=== PATIENT | female | born 1995 | race African-American/Black ===

== ENCOUNTER 2017-05-20 20:32 | Emergency (ER) | payer OTHER ==
[2017-05-20 20:49] VITALS: TEMP 98.5; BMI 22.8
--- NOTE | 2017-05-20 20:49 | PDOC ---
Rapid Medical Evaluation Time Seen by Provider: 05/20/17 20:44 Medical Evaluation: Allergies Allergy/AdvReac Type Severity Reaction Status Date / Time codeine [Codeine] AdvReac Severe Hives Verified 04/11/15 17:09 hydromorphone HCl AdvReac Severe Hives Verified 04/11/15 17:09 [From Dilaudid] oxycodone HCl [From Percocet] AdvReac Severe Hives Verified 04/11/15 17:09 05/20/17 20:44 21 year old female with Long QT Syndrome s/p PPM/aICD placement at [facility] 2010 who presents with mother complaining of chest tightness, "heartburn", and left arm pain that began at rest about one hour ago. Does not feel short of breath now, but did earlier today. -EKG -CXR -CBC, CMP, cardiac profile, PT/INR -To Main ED for further evaluation Discharge Disposition - Referrals Referrals: Pardeep Welch MD [Primary Care Provider] - - Patient Instructions - Post Discharge Activity
[2017-05-20 21:19] LABS: BASO % 0.6 % (0-2.0); EOS % 0.9 % (0-4.5); HEMATOCRIT 39.9 % (32.4-45.2); HEMOGLOBIN 13.1 GM/dL (10.7-15.3); MCH 31.7 pg (25.7-33.7); MCHC 32.8 g/dl (32.0-36.0); MEAN CELL VOLUME 96.5 fl (80-96); MEAN PLT VOLUME 7.5 fl (7.5-11.1); MONO % 6.3 % (3.8-10.2); NEUT % 70.2 % (42.8-82.8); PLATELET COUNT 354 K/MM3 (134-434); RBC 4.14 M/mm3 (3.60-5.2); RDW 13.7 % (11.6-15.6); WHITE BLOOD COUNT 8.2 K/mm3 (4.0-10.0)
[2017-05-20 21:33] LABS: INR 1.17 (0.82-1.09); PROTHROMBIN TIME (PATIENT) 13.2 SEC (9.98-11.88)
[2017-05-20 21:44] LABS: ALBUMIN 4.3 g/dl (3.4-5.0); ANION GAP 8 (8-16); BILIRUBIN,TOTAL 0.4 mg/dL (0.2-1.0); BLOOD UREA NITROGEN 5 mg/dL (7-18); CALCIUM 8.8 mg/dL (8.5-10.1); CHLORIDE 105 mmol/L (98-107); CO2 27 mmol/L (21-32); CREATININE 0.6 mg/dL (0.55-1.02); GLUCOSE,RANDOM 115 mg/dL (74-106); POTASSIUM 3.7 mmol/L (3.5-5.1); SGOT/AST 11 U/L (15-37); SGPT/ALT 12 U/L (12-78); SODIUM 140 mmol/L (136-145)
[2017-05-20 21:46] LABS: ALK PHOS 53 U/L (45-117)
[2017-05-20 22:12] VITALS: BP 107/67; PULSE 87
--- NOTE | 2017-05-20 22:16 | PDOC ---
History of Present Illness - General History Source: Patient Exam Limitations: No Limitations - History of Present Illness Initial Comments: 05/20/17 22:32 The patient is a 21 year old female with a significant PMH of long QT syndrome s /p ICD pacemaker placement (2010), anemia, and asthma who presents to the emergency department with chest tightness and epigastric discomfort beginning earlier today. She describes her chest tightness as a midsternal pain with radiation down her left arm, 8/10 in severity. She also endorses slight shortness of breath at presentation. The patient denies headache and dizziness. Denies fever, chills, nausea, vomit, diarrhea and constipation. Denies dysuria, frequency, urgency and hematuria. Allergies: Codeine. Hydromorphone HCl. Oxycodone HCl. Past surgical history: ICD pacemaker placement. Social history: No reported cigarette, alcohol, or drug use. PCP: None reported. <Jeremías Parker - Last Filed: 05/21/17 01:15> - General History Source: Patient <Jaylan Mustafa - Last Filed: 05/21/17 19:18> - General Chief Complaint: Pain Stated Complaint: LEFT ARM PAIN/CHEST TIGHTNESS Time Seen by Provider: 05/20/17 20:44 Past History <Jeremías Parker - Last Filed: 05/21/17 01:15> - Past Medical History Anemia: Yes Asthma: Yes Cardiac Disorders: Yes (long QT syndrome-> 1 sz, defibrillator) COPD: No Seizures: No (cardiac seizure) - Surgical History Cardiac Surgery: Yes (ICD implanted 2010) - Immunization History Immunization Up to Date: Yes - Suicide/Smoking/Psychosocial Hx Smoking Status: No Smoking History: Never smoked Have you smoked in the past 12 months: No Number of Cigarettes Smoked Daily: 0 Information on smoking cessation initiated: No Hx Alcohol Use: No Drug/Substance Use Hx: No Substance Use Type: None <Jaylan Mustafa - Last Filed: 05/21/17 19:18> - Past Medical History Allergies/Adverse Reactions: Allergies Allergy/AdvReac Type Severity Reaction Status Date / Time codeine [Codeine] AdvReac Severe Hives Verified 05/20/17 20:47 hydromorphone HCl AdvReac Severe Hives Verified 05/20/17 20:47 [From Dilaudid] oxycodone HCl [From Percocet] AdvReac Severe Hives Verified 05/20/17 20:47 Home Medications: Ambulatory Orders Noreth A-Et Estra/Fe Fumarate [Microgestin Fe 1.5-30 Tab] 1 each PO DAILY Naproxen [Naprosyn -] 500 mg PO BID #30 tablet 04/11/15 Review of Systems - Review of Systems Able to Perform ROS?: Yes Comments:: 05/20/17 22:32 CONSTITUTIONAL: Absent: fever, chills, diaphoresis, generalized weakness, malaise, loss of appetite HEENT: Absent: rhinorrhea, nasal congestion, throat pain, throat swelling, difficulty swallowing, mouth swelling, ear pain, eye pain, visual Changes CARDIOVASCULAR: (+) Midsternal chest tightness with radiation to the left arm. Absent: syncope, palpitations, irregular heart rate, lightheadedness, peripheral edema RESPIRATORY: (+) Shortness of breath. Absent: cough, dyspnea with exertion, orthopnea, wheezing, stridor, hemoptysis GASTROINTESTINAL: (+) Epigastric discomfort. Absent: abdominal distension, nausea, vomiting, diarrhea, constipation, melena, hematochezia GENITOURINARY: Absent: dysuria, frequency, urgency, hesitancy, hematuria, flank pain, genital pain MUSCULOSKELETAL: Absent: myalgia, arthralgia, joint swelling SKIN: Absent: rash, itching, pallor HEMATOLOGIC/IMMUNOLOGIC: Absent: easy bleeding, easy bruising, lymphadenopathy, frequent infections ENDOCRINE: Absent: unexplained weight gain, unexplained weight loss, heat intolerance, cold intolerance NEUROLOGIC: Absent: headache, focal weakness or paresthesias, dizziness, unsteady gait, seizure, mental status changes, bladder or bowel incontinence PSYCHIATRIC: Absent: anxiety, depression, suicidal or homicidal ideation, hallucinations. <Jeremías Parker - Last Filed: 05/21/17 01:15> *Physical Exam - Vital Signs Last Vital Signs Temp Pulse Resp BP Pulse Ox 98.5 F 87 18 107/67 99 05/20/17 20:47 05/20/17 22:11 05/20/17 22:11 05/20/17 22:11 05/20/17 22:11 - Physical Exam Comments: 05/20/17 22:32 GENERAL: Well developed, well nourished. Awake and alert. No acute distress. HEENT: Normocephalic, atraumatic. PERRLA, EOMI. No conjunctival pallor. Sclera are non- icteric. Moist mucous membranes. Oropharynx is clear. NECK: Supple. Full ROM. No JVD. Carotid pulses 2+ and symmetric, without bruits. No thyromegaly. No lymphadenopathy. CARDIOVASCULAR: Regular rate and rhythm. No murmurs, rubs, or gallops. Distal pulses are 2+ and symmetric. PULMONARY: No evidence of respiratory distress. Lungs clear to auscultation bilaterally. No wheezing, rales or rhonchi. ABDOMINAL: Soft. Non-tender. Non-distended. No rebound or guarding. No organomegaly. Normoactive bowel sounds. MUSCULOSKELETAL Normal range of motion at all joints. No bony deformities or tenderness. No CVA tenderness. EXTREMITIES: No cyanosis. No clubbing. No edema. No calf tenderness. SKIN: Warm and dry. Normal capillary refill. No rashes. No jaundice. NEUROLOGICAL: Alert, awake, appropriate. Cranial nerves 2-12 intact. No deficits to light touch and temperature in face, upper extremities and lower extremities. No motor deficits in the in face, upper extremities and lower extremities. Normoreflexic in the upper and lower extremities. Normal speech. Toes are downgoing bilaterally. Gait is normal without ataxia. PSYCHIATRIC: Cooperative. Good eye contact. Appropriate mood and affect. <Jeremías Parker - Last Filed: 05/21/17 01:15> - Vital Signs Last Vital Signs Temp Pulse Resp BP Pulse Ox 98.5 F 87 18 107/67 99 05/20/17 20:47 05/20/17 22:11 05/20/17 22:11 05/20/17 22:11 05/20/17 22:11 <Jaylan Mustafa - Last Filed: 05/21/17 19:18> Heart Score/ECG Review #1 05/20/17 22:41 Vent rate 86 bpm Normal sinus rhythm Normal ECG #2 05/21/17 01:16 Vent rate 66 bpm Normal sinus rhythm with sinus arrythmia Low voltage QRS Prolonged QT Abnormal ECG <Jeremías Parker - Last Filed: 05/21/17 01:15> ED Treatment Course - LABORATORY CBC & Chemistry Diagram: 05/20/17 21:00 05/20/17 21:00 - ADDITIONAL ORDERS Additional order review: Laboratory Results 05/20/17 05/20/17 21:00 21:00 PT with INR 13.20 H INR 1.17 H Sodium 140 Potassium 3.7 Chloride 105 Carbon Dioxide 27 Anion Gap 8 BUN 5 L Creatinine 0.6 Creat Clearance w eGFR > 60 Random Glucose 115 H Calcium 8.8 Magnesium 2.0 Total Bilirubin 0.4 D AST 11 L ALT 12 Alkaline Phosphatase 53 Creatine Kinase 73 Troponin I < 0.02 Total Protein 9.0 H Albumin 4.3 05/20/17 21:00 RBC 4.14 MCV 96.5 H MCHC 32.8 RDW 13.7 MPV 7.5 Neutrophils % 70.2 Lymphocytes % 22.0 Monocytes % 6.3 Eosinophils % 0.9 Basophils % 0.6 <Jeremías Parker - Last Filed: 05/21/17 01:15> - LABORATORY CBC & Chemistry Diagram: 05/20/17 21:00 05/20/17 21:00 - ADDITIONAL ORDERS Additional order review: Laboratory Results 05/20/17 05/20/17 21:00 21:00 PT with INR 13.20 H INR 1.17 H Sodium 140 Potassium 3.7 Chloride 105 Carbon Dioxide 27 Anion Gap 8 BUN 5 L Creatinine 0.6 Creat Clearance w eGFR > 60 Random Glucose 115 H Calcium 8.8 Magnesium 2.0 Total Bilirubin 0.4 D AST 11 L ALT 12 Alkaline Phosphatase 53 Creatine Kinase 73 Troponin I < 0.02 Total Protein 9.0 H Albumin 4.3 05/20/17 21:00 RBC 4.14 MCV 96.5 H MCHC 32.8 RDW 13.7 MPV 7.5 Neutrophils % 70.2 Lymphocytes % 22.0 Monocytes % 6.3 Eosinophils % 0.9 Basophils % 0.6 <Jaylan Mustafa - Last Filed: 05/21/17 19:18> Medical Decision Making - Medical Decision Making 05/21/17 19:17 Dr. Mustafa: The scribe's documentation has been prepared under my direction and personally reviewed by me in its entirery. I confirm that the note above accurately reflects all work, treatment, procedures, and medical decision making performed by me. 21-year-old female with Prolongeed QT syndrome with ACID/pacemaker. Complained of chest pain, clinic enzymes 2 are negative. Patient discharged to follow cardiology <Jaylan Mustafa - Last Filed: 05/21/17 19:18> *DC/Admit/Observation/Transfer - Attestations Scribe Attestion: 05/20/17 22:32 Documentation prepared by Jeremías Parker, acting as medical service technician for Jaylan Mustafa DO. <Jeremías Parker - Last Filed: 05/21/17 01:15> - Discharge Dispostion Admit: No <Jaylan Mustafa - Last Filed: 05/21/17 19:18> Diagnosis at time of Disposition: Chest pain Qualifiers: Chest pain type: unspecified Qualified Code(s): R07.9 - Chest pain, unspecified - Discharge Dispostion Disposition: HOME Condition at time of disposition: Stable - Referrals Referrals: Pardeep Welch MD [Staff Physician] - Sonny Reyes MD [Staff Physician] - - Patient Instructions Printed Discharge Instructions: DI for Chest Pain Additional Instructions: Please follow up with your primary care and analytics intern as soon as possible. Return if any problems. - Post Discharge Activity
[2017-05-20] MEDS ORDERED: ASPIRIN 81 MG CHEWABLE TABLETS PO ONE (22:23)
[2017-05-20] MEDS ORDERED: PANTOPRAZOLE SODIUM 40 MG in SODIUM CHLORIDE 100 ML IVPB ONE (22:23)
[2017-05-20] MEDS ORDERED: PANTOPRAZOLE SODIUM 40 MG VIAL ONE (22:57)
[2017-05-20] MEDS ORDERED: ASPIRIN 325 MG TABLET ONE (22:57)
--- NOTE | 2017-05-21 10:26 | EKG ---
Test Reason : Blood Pressure : / mmHG Vent. Rate : 066 BPM Atrial Rate : 066 BPM P-R Int : 146 ms QRS Dur : 074 ms QT Int : 460 ms P-R-T Axes : 060 077 060 degrees QTc Int : 482 ms NORMAL SINUS RHYTHM WITH SINUS ARRHYTHMIA LOW VOLTAGE QRS PROLONGED QT ABNORMAL ECG WHEN COMPARED WITH ECG OF 20-MAY-2017 20:52, NONSPECIFIC T WAVE ABNORMALITY NO LONGER EVIDENT IN INFERIOR LEADS NONSPECIFIC T WAVE ABNORMALITY NO LONGER EVIDENT IN ANTERIOR LEADS Confirmed by SAPNA ESCOBEDO, TRUDY ([id number]) on 05/21/2017 10:26:16 AM Referred By: Confirmed By:TRUDY ALEJO MD
--- NOTE | 2017-05-21 10:58 | EKG ---
Test Reason : Blood Pressure : / mmHG Vent. Rate : 086 BPM Atrial Rate : 086 BPM P-R Int : 132 ms QRS Dur : 074 ms QT Int : 384 ms P-R-T Axes : 051 072 030 degrees QTc Int : 459 ms NORMAL SINUS RHYTHM NORMAL ECG WHEN COMPARED WITH ECG OF 11-APR-2015 18:44, NO SIGNIFICANT CHANGE WAS FOUND Confirmed by TRUDY ALEJO MD ([id number]) on 05/21/2017 10:57:40 AM Referred By: Confirmed By:TRUDY ALEJO MD
== END 2017-05-21 02:22 | disposition home or self-care (01) ==
LOC: JER 20:32
PROC: 3E033GC Introduction of Other Therapeutic Substance into Peripheral Vein, Percutaneous Approach (ICD-10-PCS; principal; 2017-05-20)
DX: R07.89 Other chest pain (principal); I45.81 Long QT syndrome; Z95.810 Presence of automatic (implantable) cardiac defibrillator
CPT/HCPCS: 36415; 80053; 82550; 83735; 84484; 84703; 85025; 85610; 93005; 93010; 96365; 99282-25

== ENCOUNTER 2018-02-27 10:32 | Emergency (ER) | payer OTHER ==
[2018-02-27 10:44] VITALS: TEMP 97.8; BMI 23.7
[2018-02-27 11:31] LABS: BASO % 0.9 % (0-2.0); EOS % 1.8 % (0-4.5); HEMATOCRIT 36.7 % (32.4-45.2); LYMPH % 27.5 % (8-40); MCH 31.5 pg (25.7-33.7); MCHC 32.6 g/dl (32.0-36.0); MEAN CELL VOLUME 96.5 fl (80-96); MEAN PLT VOLUME 7.2 fl (7.5-11.1); MONO % 9.7 % (3.8-10.2); NEUT % 60.1 % (42.8-82.8); PLATELET COUNT 365 K/MM3 (134-434); RDW 13.4 % (11.6-15.6); WHITE BLOOD COUNT 5.2 K/mm3 (4.0-10.0)
[2018-02-27] MEDS ORDERED: KETOROLAC TROMETHAMINE 30 MG/1 ML VIAL IVPUSH ONE (11:52)
--- NOTE | 2018-02-27 12:04 | PDOC ---
History of Present Illness - General Chief Complaint: Chest Pain Stated Complaint: CHEST PAIN&PALPITATIONS Time Seen by Provider: 02/27/18 10:50 History Source: Patient Exam Limitations: No Limitations - History of Present Illness Initial Comments: 02/27/18 12:00 22-year-old female with history of QT syndrome and a pacemaker placed in 2010 presents to ED with complaints of sternal chest tightness associated with burning now radiates to her left side of her chest. Patient denies difficulty breathing, palpitations, nausea, dizziness, diaphoresis. Patient is followed by Dr. Tico Walters auto emissions technician was aware of patient's ER visit today. She denies any recent change in activity, change in medications, recent travel or recent injury Presenting Symptoms: Chest Pain Timing/Duration: reports: constant Severity/Quality: reports: burning, tightness Location: reports: substernal Chest Pain Radiation: reports: no radiation Activities at Onset: reports: none Prior Chest Pain/Cardiac Workup: reports: Other Nitro Today/Relief: Yes: no nitro taken today Aspirin Received prior to arrival (Core Measure): Yes: no aspirin today Beta Lucia Contraindications (Core Measure): Yes: Not Prescribed Beta Lucia indicated at this time? (Core Measure): No Associated Symptoms: Yes: Chest Pain/pressure Past History - Travel Traveled outside of the country in the last 30 days: No Close contact w/someone who was outside of country & ill: No - Past Medical History Allergies/Adverse Reactions: Allergies Allergy/AdvReac Type Severity Reaction Status Date / Time nut - unspecified Allergy Severe Hives Verified 02/27/18 10:36 soy Allergy Severe Rash Verified 02/27/18 10:36 wheat Allergy Severe Rash Verified 02/27/18 10:36 sesame seed Allergy Intermediate Hives Verified 02/27/18 10:42 shellfish derived Allergy Verified 02/27/18 10:42 codeine [Codeine] AdvReac Severe Hives Verified 02/27/18 10:36 hydromorphone HCl AdvReac Severe Hives Verified 02/27/18 10:36 [From Dilaudid] oxycodone HCl [From Percocet] AdvReac Severe Hives Verified 02/27/18 10:36 Home Medications: Ambulatory Orders Buspirone HCl [Buspar -] 0 mg PO ASDIR 02/27/18 Anemia: Yes Asthma: Yes Cardiac Disorders: Yes (long QT syndrome-> 1 sz, defibrillator) COPD: No Psychiatric Problems: Yes (ANXIETY) Seizures: No (cardiac seizure) - Surgical History Cardiac Surgery: Yes (ICD implanted 2010) - Immunization History Immunization Up to Date: Yes - Suicide/Smoking/Psychosocial Hx Smoking Status: No Smoking History: Never smoked Have you smoked in the past 12 months: No Number of Cigarettes Smoked Daily: 0 Hx Alcohol Use: No Drug/Substance Use Hx: No Substance Use Type: None Patient Lives Alone: No Lives with/in: parents Cardiac Specific PMH - Complaint Specific PMHX Cardiac Arrhythmia: Yes Review of Systems - Review of Systems Able to Perform ROS?: Yes Constitutional: No: Symptoms Reported HEENTM: No: Symptoms Reported Respiratory: No: Symptoms reported Cardiac (ROS): Yes: Chest Pain, Chest Tightness ABD/GI: No: Symptoms Reported : No: Symptoms Reported Musculoskeletal: No: Symptoms Reported Integumentary: No: Symptoms Reported Neurological: No: Symptoms reported Endocrine: No: Symptoms Reported Hematologic/Lymphatic: No: Symptoms Reported *Physical Exam - Vital Signs Last Vital Signs Temp Pulse Resp BP Pulse Ox 97.8 F 80 16 95/66 100 02/27/18 10:36 02/27/18 13:58 02/27/18 13:58 02/27/18 13:58 02/27/18 13:58 - Physical Exam General Appearance: Yes: Nourished, Appropriately Dressed. No: Apparent Distress HEENT: negative: Pale Conjunctivae Neck: positive: Supple Respiratory/Chest: positive: Chest Tender (mid sternal and left side of anteriot chest at 3-6 th ribs), Lungs Clear, Normal Breath Sounds. negative: Respiratory Distress, Accessory Muscle Use Cardiovascular: positive: Regular Rhythm, Regular Rate. negative: Murmur Gastrointestinal/Abdominal: positive: Soft. negative: Tenderness Integumentary: positive: Normal Color, Warm, Moist Neurologic: positive: Motor Strength 5/5 (Ambulatory) Heart Score/ECG Review - ECG Intrepretation Rhythm: Regular Rhythm (rate 69.Normal sinus with sinus arrhythmia w/ prolonged QT at 454 ms) ED Treatment Course - LABORATORY CBC & Chemistry Diagram: 02/27/18 10:53 02/27/18 12:20 - ADDITIONAL ORDERS Additional order review: Laboratory Results 02/27/18 02/27/18 02/27/18 12:20 12:20 10:53 Sodium 138 Cancelled Potassium 3.9 Cancelled Chloride 104 Cancelled Carbon Dioxide 29 Cancelled Anion Gap 6 L Cancelled BUN 11 Cancelled Creatinine 0.5 L Cancelled Creat Clearance w eGFR > 60 Cancelled Random Glucose 72 L Cancelled Calcium 8.7 Cancelled Magnesium 2.4 Cancelled Total Bilirubin 0.5 Cancelled AST 13 L Cancelled ALT 11 L Cancelled Alkaline Phosphatase 40 L Cancelled Creatine Kinase 89 Cancelled Troponin I < 0.02 Cancelled Total Protein 8.1 Cancelled Albumin 3.8 Cancelled Serum , Qual Negative 02/27/18 10:53 RBC 3.80 MCV 96.5 H MCHC 32.6 RDW 13.4 MPV 7.2 L Neutrophils % 60.1 Lymphocytes % 27.5 D Monocytes % 9.7 Eosinophils % 1.8 D Basophils % 0.9 - RADIOLOGY Radiology Studies Ordered: Category Date Time Status CHEST X-RAY PORTABLE* [RAD] Stat Radiology 02/27/18 10:50 Completed - Medications Given in the ED: ED Medications Discontinued Medications Generic Name Dose Route Start Last Admin Trade Name Freq PRN Reason Stop Dose Admin Ketorolac Tromethamine 30 mg 02/27/18 11:52 02/27/18 13:15 Toradol Injection - IVPUSH 02/27/18 11:53 30 mg ONCE ONE Administration Medical Decision Making - Medical Decision Making 02/27/18 12:02 Chief complaint: Chest tightness after waking up this a.m. Patient history of QT syndrome and pacemaker placement 2010. No other complaints. Exam: Reproducible left-sided chest pain vital stable. EKG unremarkable. Plan: Mapori interrogation, labs, chest x-ray, Toradol, consult to Dr. walters. 02/27/18 13:58 Laboratory Tests 02/27/18 12:20 Sodium 138 Potassium 3.9 Chloride 104 Carbon Dioxide 29 Anion Gap 6 L BUN 11 Creatinine 0.5 L Random Glucose 72 L Calcium 8.7 Magnesium 2.4 Total Bilirubin 0.5 AST 13 L ALT 11 L Alkaline Phosphatase 40 L Troponin I < 0.02 02/27/18 14:00 X-ray negative for significant change or acute intrathoracic abnormality. Patient states feeling better after receiving Toradol. Call placed to auto emissions technician Laboratory Tests 02/27/18 10:53 WBC 5.2 RBC 3.80 Hgb 12.0 Hct 36.7 MCV 96.5 H Plt Count 365 MPV 7.2 L Neutrophils % 60.1 02/27/18 14:35 Hide Measuring Machine Operator assessed patient and feels patient may be discharged home and follow-up in the office. Patient has an appointment on March 10 and is aware to return to ED if symptoms worsen or return. *DC/Admit/Observation/Transfer Diagnosis at time of Disposition: Atypical chest pain - Discharge Dispostion Disposition: HOME Condition at time of disposition: Improved - Referrals Referrals: Pardeep Welch MD [Primary Care Provider] - Lokesh Walters MD [Staff Physician] - - Patient Instructions Printed Discharge Instructions: DI for Atypical Chest Pain Additional Instructions: I recommend taking Motrin 600mg or 975 mg of Tylenol every 6-8 hours for discomfort. If symptoms return or worsen please return to ED immediately. Otherwise follow up with Dr. Walters on the . - Post Discharge Activity
[2018-02-27] MEDS ORDERED: KETOROLAC TROMETHAMINE 30 MG/1 ML VIAL ONE (13:05)
[2018-02-27 13:25] LABS: ALBUMIN 3.8 g/dl (3.4-5.0); ALK PHOS 40 U/L (45-117); ANION GAP 6 MMOL/L (8-16); BILIRUBIN,TOTAL 0.5 mg/dL (0.2-1); BLOOD UREA NITROGEN 11 mg/dL (7-18); CALCIUM 8.7 mg/dL (8.5-10.1); CHLORIDE 104 mmol/L (98-107); CO2 29 mmol/L (21-32); CREATININE 0.5 mg/dL (0.55-1.3); GLUCOSE,RANDOM 72 mg/dL (74-106); MAGNESIUM 2.4 mg/dL (1.8-2.4); POTASSIUM 3.9 mmol/L (3.5-5.1); SGOT/AST 13 U/L (15-37); SGPT/ALT 11 U/L (13-61); SODIUM 138 mmol/L (136-145); TOT PROT 8.1 g/dl (6.4-8.2)
[2018-02-27 14:01] VITALS: BP 95/66; PULSE 80
--- NOTE | 2018-02-27 14:19 | CON.CARD ---
Consult Consult Specialty:: Cardiology Referred by:: ER Reason for Consultation:: Chest pain - History of Present Illness Chief Complaint: Chest pain History of Present Illness: 22 yo female h/o symptomatic prolonged QT syndrome post David Sci ICD presents for non-exertional left sided chest discomfort improved with drinking water and hot shower without associated symptoms of dyspnea, palpitations, ICD therapy, near or true syncope, orthopnea, PND or LE edema. Given Toradol, now symptoms resolved. Device interrogation unremarkable. - History Source History Provided By: Patient Limitations to Obtaining History: No Limitations - Alcohol/Substance Use Hx Alcohol Use: No - Smoking History Smoking history: Never smoked Have you smoked in the past 12 months: No Aproximately how many cigarettes per day: 0 Home Medications - Allergies Allergies/Adverse Reactions: Allergies Allergy/AdvReac Type Severity Reaction Status Date / Time nut - unspecified Allergy Severe Hives Verified 02/27/18 10:36 soy Allergy Severe Rash Verified 02/27/18 10:36 wheat Allergy Severe Rash Verified 02/27/18 10:36 sesame seed Allergy Intermediate Hives Verified 02/27/18 10:42 shellfish derived Allergy Verified 02/27/18 10:42 codeine [Codeine] AdvReac Severe Hives Verified 02/27/18 10:36 hydromorphone HCl AdvReac Severe Hives Verified 02/27/18 10:36 [From Dilaudid] oxycodone HCl [From Percocet] AdvReac Severe Hives Verified 02/27/18 10:36 - Home Medications Home Medications: Ambulatory Orders Buspirone HCl [Buspar -] 0 mg PO ASDIR 02/27/18 Family Disease History - Family Disease History Family Disease History: Heart Disease: Mother (Prolonged QT) Review of Systems - Review of Systems Cardiovascular: reports: Chest Pain Vital Signs: Vital Signs Temperature 97.8 F 02/27/18 10:36 Pulse Rate 80 02/27/18 13:58 Respiratory Rate 16 02/27/18 13:58 Blood Pressure 95/66 02/27/18 13:58 O2 Sat by Pulse Oximetry (%) 100 02/27/18 13:58 Constitutional: Yes: No Distress, Calm, Thin Neck: Yes: Supple Respiratory: Yes: Regular, CTA Bilaterally Gastrointestinal: Yes: Normal Bowel Sounds, Soft Cardiovascular: Yes: Regular Rate and Rhythm JVD: No Carotid Bruit: No Heart Sounds: Yes: S1, S2 Edema: No - Other Data Labs, Other Data: CBC, BMP 02/27/18 10:53 02/27/18 12:20 Troponin, BNP 02/27/18 02/27/18 10:53 12:20 Troponin I Cancelled < 0.02 Troponin, BNP 02/27/18 02/27/18 10:53 12:20 Troponin I Cancelled < 0.02 NSR @ 69 QTc 486 msec Problem List - Problems (1) Atypical chest pain Code(s): R07.89 - OTHER CHEST PAIN (2) ICD (implantable cardioverter-defibrillator) in place Code(s): Z95.810 - PRESENCE OF AUTOMATIC (IMPLANTABLE) CARDIAC DEFIBRILLATOR (3) Prolonged QT syndrome Code(s): I45.81 - LONG QT SYNDROME Assessment/Plan 1. Atypical chest pain suspect musculoskeletal etiology 2. Symptomatic prolonged QTc s/p David Sci ICD P: 1. Analgesia as needed, responded to Toradol, august d/c with f/u in office 2. Thank you for consultative opportunity
--- NOTE | 2018-03-02 23:49 | EKG ---
Test Reason : Blood Pressure : / mmHG Vent. Rate : 069 BPM Atrial Rate : 069 BPM P-R Int : 130 ms QRS Dur : 076 ms QT Int : 454 ms P-R-T Axes : 054 086 058 degrees QTc Int : 486 ms NORMAL SINUS RHYTHM WITH SINUS ARRHYTHMIA PROLONGED QT ABNORMAL ECG WHEN COMPARED WITH ECG OF 21-MAY-2017 01:06, NO SIGNIFICANT CHANGE WAS FOUND Confirmed by COLT LEZAMA MD ([id number]) on 03/02/2018 11:49:07 PM Referred By: Confirmed By:COLT LEZAMA MD
== END 2018-02-27 14:41 | disposition home or self-care (01) ==
LOC: JER 10:32
PROC: 3E0333Z Introduction of Anti-inflammatory into Peripheral Vein, Percutaneous Approach (ICD-10-PCS; principal; 2018-02-27)
DX: R07.89 Other chest pain (principal); Z95.0 Presence of cardiac pacemaker; I45.81 Long QT syndrome; F41.9 Anxiety disorder, unspecified; J45.909 Unspecified asthma, uncomplicated
CPT/HCPCS: 36415; 71045-TC-FY; 80053; 82550; 83735; 84484; 84703; 85025; 93005; 93010; 96374; 99284-25